=== PATIENT | female | born 2000 | race Caucasian/White ===

== ENCOUNTER 2022-04-30 22:27 | Outpatient (REF) | payer MEDICAID, SELFPAY ==
[2022-04-30 22:20] LABS: Abs Immature Grans 0.05 10^3/uL (0.0-0.06); Absolute Basophil Count 0.04 10^3/uL (0.0-0.2); Absolute Eosinophil Count 0.03 10^3/uL (0.0-0.7); Basophils % 0.3; Eosinophils % 0.2; HCT 39.6 % (36.0-46.0); HGB 13.6 g/dL (11.2-15.7); Immature Grans % 0.4; Lymphocytes % 7.1; MCH 30.3 pg (27.0-33.0); MCHC 34.3 % (32.0-36.0); MCV 88 fL (80-95); MPV 10.9 fL (8.0-11.0); Monocytes % 6.6; Neutrophils % 85.4; Platelet Count 199 10^3/uL (130-400); RBC 4.49 10^6/uL (3.93-5.22); RDW 12.3 % (11.7-14.6); RDW-SD 39.8 fL; WBC 13.88 10^3/uL (4.4-10.8)
[2022-04-30 22:26] LABS: Absolute Lymphocyte Count 0.99 10^3/uL (1.2-3.4); Absolute Monocyte Count 0.92 10^3/uL (0.1-0.8); Absolute Neutrophil Count 11.85 10^3/uL (1.2-6.7)
[2022-04-30 22:27] LABS: ESR 10 mm/hr (0-20)
[2022-04-30 22:29] LABS: ALT 22 U/L (14-59); AST 13 U/L (15-37); Albumin 4.3 g/dL (3.4-5.0); Alkaline Phosphatase 79 U/L (46-116); Anion Gap 7.4 mmol/L (3-11); BUN 7 mg/dL (7-18); Bilirubin, Total 0.3 mg/dL (0.2-1.0); CO2 28.6 mmol/L (21.0-32.0); CREATININE 0.7 mg/dL (0.55-1.02); Calcium 9.4 mg/dL (8.5-10.1); Chloride 103 mmol/L (98-107); Estimated GFR 124.55 (mL/min/1.73m2); Glucose 91 mg/dL (74-106); Sodium 139 mmol/L (136-145); Total Protein 7.9 g/dL (6.4-8.2)
[2022-04-30 23:41] LABS: C-Reactive Protein 3.51 mg/dL (0.0-0.3)
== END 2022-04-30 22:28 | disposition home or self-care (01) ==
LOC: LBN 22:27
PROVIDERS: PCP Nurse Practitioner Family; Visit Provider Nurse Practitioner Family
DX: R10.9 Unspecified abdominal pain (principal); F41.8 Other specified anxiety disorders; Z00.00 Encounter for general adult medical examination without abnormal findings; F43.10 Post-traumatic stress disorder, unspecified; K30 Functional dyspepsia; Z79.899 Other long term (current) drug therapy
CPT/HCPCS: 80053; 85652; 85025; 86140

== ENCOUNTER 2022-09-03 13:21 | Outpatient (CLI) | payer MEDICAID, SELFPAY ==
--- NOTE | 2022-09-03 11:00 | DI.RAD_ITS ---
Exam(s) XR ANKLE RT COMPLETE EXAM: XR ANKLE RT COMPLETE CLINICAL HISTORY: pain, swelling after falling,INJURY,S99.911A. TECHNIQUE: 2D digital imaging was performed. COMPARISON: No exams were available for comparison FINDINGS: 3 views There is prominent soft tissue swelling anterior to the lower tibia. No gas in soft tissues. No rad iopaque foreign body. There is no evidence of fracture nor widening of the ankle mortise. Talar dome appears unremarkable. Bone density normal. No osseous lesions. No osseous tarsal coalition. IMPRESSION: Anterior soft tissue swelling but no acute osseous findings. DATA REPOSITORY: RADIATION DOSE DELIVERED:
== END 2022-09-03 13:41 ==
LOC: DI 13:22
PROVIDERS: PCP Nurse Practitioner Family; Visit Provider Nurse Practitioner Family
DX: S99.911A Unspecified injury of right ankle, initial encounter (principal); M25.571 Pain in right ankle and joints of right foot; X58.XXXA Exposure to other specified factors, initial encounter
CPT/HCPCS: 73610

== ENCOUNTER 2022-12-03 19:55 | Outpatient (REF) | payer MEDICAID, SELFPAY ==
[2022-12-03 21:43] LABS: C-Reactive Protein 0.06 mg/dL (0.0-0.3); Ferritin 125 ng/mL (8-252)
[2022-12-04 17:54] LABS: Rheumatoid Factor <8.6 IU/mL (<12.0)
[2022-12-05 08:45] LABS: Cyclic Citrullinated Peptide <2.5 U/mL (<5.0)
[2022-12-05 15:25] LABS: ANA Interpretation Negative (Negative)
== END 2022-12-03 19:56 | disposition home or self-care (01) ==
LOC: NCHCN 19:55
PROVIDERS: PCP Nurse Practitioner Family; Visit Provider Nurse Practitioner Family
DX: R52 Pain, unspecified (principal); G25.81 Restless legs syndrome
CPT/HCPCS: 86200; 82728; 86038; 86140; 86431

== ENCOUNTER 2024-09-10 11:13 | Outpatient (CLI) | payer MEDICAID, SELFPAY ==
[2024-09-10 18:54] LABS: Hepatitis C Ab w Rflx HCV PCR Negative (Negative)
[2024-09-10 18:55] LABS: HBs Antibody, Quant 4.1 mIU/mL (See Note); Hepatitis B Surface Antigen Negative (Negative)
[2024-09-10 18:57] LABS: HIV-1/2 Ag & Ab Screen Negative (Negative)
[2024-09-13 10:24] LABS: Syphilis Serology (RPR) Negative (Negative)
[2024-09-13 12:22] LABS: Chlamydia Result Negative (Negative); GC Result Negative (Negative)
== END 2024-09-10 11:14 | disposition home or self-care (01) ==
LOC: LOS 11:28 → LBN 14:01
PROVIDERS: PCP Nurse Practitioner Family; Referring Provider Nurse Practitioner Family; Visit Provider Nurse Practitioner Family
DX: Z11.3 Encounter for screening for infections with a predominantly sexual mode of transmission (principal)
CPT/HCPCS: 36415; 86704; 86706; 86803; 87340; 87389; 87491; 87591; 86592

== ENCOUNTER 2025-01-26 23:05 | Emergency (ER) | payer MEDICAID, SELFPAY ==
--- NOTE | 2025-01-26 00:03 | DI.RAD_ITS ---
Exam(s) XR ELBOW RT COMPLETE EXAM: XR ELBOW RT COMPLETE CLINICAL HISTORY: fall, slip, right elbow pain. TECHNIQUE: 2D digital imaging was performed of the left elbow. Three images were obtained. AP, lateral and oblique views were obtained. COMPARISON: No exams were available for comparison FINDINGS: BONES: No acute fracture is present. No bony destructive lesion is seen. JOINTS: The elbow is normally aligned. There is a joint effusion present. SOFT TISSUE: Normal. IMPRESSION: 1. There is no acute fracture or dislocation seen at this time. 2. There is a joint effusion which can be seen with an occult fracture. Consider follow-up examination in 10-14 days. 3. The preliminary [facility] report was reviewed. DATA REPOSITORY: RADIATION DOSE DELIVERED:
[2025-01-26 23:07] VITALS: BP 135/96; PULSE 83; RESP 18; TEMP 37; O2SAT 97
[2025-01-26] MEDS: Ibuprofen 800 MG TAB PO (23:42)
[2025-01-26] MEDS: Acetaminophen 500 MG TAB 1000 MG PO (23:42)
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
--- NOTE | 2025-01-27 00:52 | DI.[facility]_ITS ---
PROCEDURE INFORMATION: Exam: XR Right Elbow Exam date and time: 01/26/2025 11:57 PM Age: 24 years old Clinical indication: Injury or trauma; Blunt trauma (contusions or hematomas); Injury date: 01/26/25; Fall, slip, right elbow pain TECHNIQUE: Imaging protocol: Radiologic exam of the right elbow. Views: 3 or more views. COMPARISON: No relevant prior studies available. FINDINGS: Bones/joints: There is a joint effusion. No fracture identified. Soft tissues: Normal. IMPRESSION: 1. No acute fracture identified. 2. Joint effusion, concerning for occult fracture. Consider follow-up radiographs in 10-14 days. Dictated and Authenticated by: Ashwin Latif MD. Orderin Last Aguayo MD
--- NOTE | 2025-01-29 08:42 | NUR.NOTE ---
Access chart to print the demographic sheet for [facility] billing requisition. Nursing Note:
== END 2025-01-27 01:13 | disposition home or self-care (01) ==
LOC: ER 01-27 01:15
PROVIDERS: Emergency Provider Student in an Organized Health Care Education/Training Program; PCP Nurse Practitioner Family
DX: S59.801A Other specified injuries of right elbow, initial encounter; W01.198A Fall on same level from slipping, tripping and stumbling with subsequent striking against other object, initial encounter
CPT/HCPCS: 99283; 73080